=== PATIENT | female | born 1970 | race Caucasian/White ===

== ENCOUNTER 2021-03-12 07:59 | Outpatient (CLI) | payer OTHER ==
[~2021-03-12 07:59] MED LIST: CLONAZEPAM2 M1; PAROXETINE7.5 MG
== END 2021-03-12 08:11 | disposition home or self-care (01) ==
LOC: SONOGRAMA 07:59
DX: R10.84 Generalized abdominal pain (principal); K91.89 Other postprocedural complications and disorders of digestive system; Z48.815 Encounter for surgical aftercare following surgery on the digestive system

== ENCOUNTER 2022-02-08 08:15 | Inpatient (IN) | payer OTHER ==
[~2022-02-08] VITALS: Ht 160 cm; Wt 78.9 kg
[2022-02-08] MEDS ORDERED: LITHIUM CARBON450 MG PO (09:54)
[2022-02-08] MEDS ORDERED: LEVOTHYROXINE25 MCG PO (09:55)
[2022-02-08] MEDS ORDERED: SPRINTEC 28 DA1 EACH PO (11:11)
[2022-02-08] MEDS ORDERED: [UNRECOGNIZED DRUG - OTHER] (11:12)
[2022-02-09] MEDS ORDERED: MEMANTINE HCL5 MG PO (14:05)
[2022-02-11] MEDS ORDERED: NAPR500T14 PO (09:25)
[2022-02-11] MEDS ORDERED: Tylenol #3 PO (09:25)
== END 2022-02-11 10:50 | disposition home or self-care (01) | DRG 743 ==
LOC: OB/GYN 02-09 08:43 → SURG 02-10 08:15 → OB/GYN 02-11 10:50
PROVIDERS: ADMIT Obstetrics & Gynecology; ATTEND Obstetrics & Gynecology
PROC: 0UT74ZZ Resection of Bilateral Fallopian Tubes, Percutaneous Endoscopic Approach (ICD-10-PCS; 2022-02-10)
PROC: 0UT24ZZ Resection of Bilateral Ovaries, Percutaneous Endoscopic Approach (ICD-10-PCS; 2022-02-10)
PROC: 0TJB8ZZ Inspection of Bladder, Via Natural or Artificial Opening Endoscopic (ICD-10-PCS; 2022-02-10)
PROC: 0UT94ZZ Resection of Uterus, Percutaneous Endoscopic Approach (ICD-10-PCS; principal; 2022-02-10 19:15)
DX: N80.0 Endometriosis of uterus (principal); N72 Inflammatory disease of cervix uteri; N81.11 Cystocele, midline; Z20.822 Contact with and (suspected) exposure to COVID-19